=== PATIENT | male | born 1995 | race Caucasian/White ===

== ENCOUNTER 2017-02-13 17:03 | Emergency (ER) | payer OTHER ==
[2017-02-13 18:47] LABS: BASO % 0.2 % (0.2-1.2); EOS # 0.3 10_X3_uL (0.0-0.5); EOS % 2.1 % (0.8-7.0); GRAN # 9.2 10_X3_uL (1.8-5.4); HEMATOCRIT 40.4 % (40-51); HEMOGLOBIN 14.1 g/dL (13.7-17.5); LYMPH # 2.3 10_X3_uL (1.3-3.6); LYMPH % 17.7 % (21.8-53.1); MEAN CORPUSCULAR HEMOGLOBIN 30.5 pg (27.0-33.0); MEAN CORPUSCULAR HGB CONC 34.9 g/dL (32.0-36.0); MEAN CORPUSCULAR VOLUME 87.3 fL (79-92); MEAN PLATELET VOLUME 10.5 fl (7.5-11.5); MONO # 1.2 10_X3_uL (0.3-0.8); PLATELET COUNT 231 x10_3/uL (163-337); RED BLOOD COUNT 4.63 x10_6/uL (4.6-6.1); RED CELL DISTRIBUTION WIDTH 12.4 % (11.6-14.4); WHITE BLOOD COUNT 12.9 x10_3/uL (4.2-9.1)
[2017-02-13 19:01] LABS: ALBUMIN 4.6 gm/dL (3.4-5.0); ALKALINE PHOSPHATASE 81 U/L (50-136); ALT/SGPT 18 U/L (7.53-40.17); AST/SGOT 30 U/L (6.66-35.34); BILIRUBIN,TOTAL 1.23 mg/dL (0.0-1.0); BLOOD UREA NITROGEN 18 mg/dL (7-18); CALCIUM 9.8 mg/dL (8.7-10.7); CARBON DIOXIDE 21 mmol/L (21-32); CREATININE 0.9 mg/dL (0.6-1.3); GLUCOSE,RANDOM 98 mg/dL (70-99); POTASSIUM 3.5 mmol/L (3.5-5.1); SODIUM 140 mmol/L (136-145); TOTAL PROTEIN 7.3 gm/dL (6.4-8.2)
== END 2017-02-13 20:50 | disposition home or self-care (01) ==
LOC: EDBD 17:03 → ER 17:03
PROVIDERS: Emergency Medicine
DX: F15.10 Other stimulant abuse, uncomplicated (principal); F41.9 Anxiety disorder, unspecified; R20.0 Anesthesia of skin; R00.2 Palpitations; R00.0 Tachycardia, unspecified; R06.02 Shortness of breath; F17.210 Nicotine dependence, cigarettes, uncomplicated; F10.99 Alcohol use, unspecified with unspecified alcohol-induced disorder
CPT/HCPCS: 36415; 80053; 85025; 93005; 96374; 96375; 99070; 99283-25